=== PATIENT | male | born 1970 | race African-American/Black ===

== ENCOUNTER → 2019-12-09 | Outpatient (CLI) | payer OTHER ==
--- NOTE | 2019-12-09 15:13 | Diagnostic Imaging Report ---
MRI SPINE LUMBAR WO HISTORY: Low back pain, right leg pain COMPARISON: None. TECHNIQUE: Sagittal T1, sagittal T2, sagittal STIR, axial T2, coronal T2, and axial proton density weighted images of the lumbar spine were obtained without contrast. DISCUSSION: Number of non-rib bearing lumbar vertebral bodies: 5. Alignment: Normal lordosis. No scoliosis. Vertebrae: No fractures, infection or neoplasm. Conus medullaris: Normal, ends at T12-L1. Cauda equina: No masses or arachnoiditis. Posterior paraspinal muscles: Well preserved. Posterior incision signal changes are noted. Soft tissues: Partially imaged subcentimeter T2 hyperintense nodular lesion in the upper right kidney is likely a cyst. There is moderate disc degeneration at L5-S1. T12-L1: Patent canal and foramina. L1-L2: Patent canal and foramina. L2-L3: Patent canal and foramina. L3-L4: Patent canal and foramina. L4-L5: Disc bulge without significant canal or foraminal stenosis. L5-S1: Laminectomy changes without significant central canal stenosis. The lateral recesses are grossly clear. Moderate right and mild to moderate left foraminal stenoses are due to disc bulge and facet arthrosis. IMPRESSION: 1. Moderate L5-S1 disc degeneration with L5-S1 laminectomy changes. 2. Moderate right and mild to moderate left L5-S1 degenerative foraminal stenoses. 3. No significant canal stenosis. Signed by: Dr. Cristofer Leija M.D. on 12/09/2019 3:09 PM
== END ==
LOC: MRI 14:02
PROVIDERS: ATTEND Family Medicine
DX: S39.012D Strain of muscle, fascia and tendon of lower back, subsequent encounter (principal)
CPT/HCPCS: 72148